=== PATIENT | female | born 1950 | race Hispanic/Latino ===

== ENCOUNTER 2016-08-21 09:25 | Outpatient (CLI) | payer MEDICARE ==
--- NOTE | 2016-08-21 12:40 | Magnetic Resonance Report ---
MRI BRAIN WITHOUT CONTRAST: 08/21/16 09:25:00 CLINICAL: Multiple sclerosis. COMPARISON: 02/20/12 TECHNIQUE: Axial diffusion, T1, T2, FLAIR, gradient echo T2*, and sagittal T1 sequences on a 1.5 Peggy magnet. FINDINGS: The ventricles and sulci are large for age and slightly larger compared to the prior exam. Grossly symmetric large bilateral temporo--parietal clefts technique a width of subarachnoid space but do not indicate within ventricles. These are not significantly changed compared to the prior exam. Extensive and slightly greater bilateral periventricular deep white matter and subcortical white matter and central nuñez matter hyperintensities on FLAIR and T2. 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 No restricted diffusion. No mass or mass effect. No hemorrhage, edema or extra-axial collection. Normal pituitary and optic chiasm. A left pontine focal hyperintensity on T2 is slightly more prominent than on the prior exam. Several small bilateral cerebellar white matter hyperintensities which are more prominent on the left side. Intact vascular flow voids. Normal sinuses. The orbits, and soft tissues are normal. Normal calvarium and skull base. IMPRESSION: Slightly greater global cortical atrophy and slightly more extensive bilateral white matter disease consistent with multiple sclerosis. No evidence of infarct or hemorrhage.
== END 2016-08-21 09:26 | disposition home or self-care (01) ==
LOC: SPVIMAG 09:25
DX: G35 Multiple sclerosis (principal); G31.9 Degenerative disease of nervous system, unspecified
CPT/HCPCS: 70551

== ENCOUNTER 2017-05-27 12:38 | Outpatient (CLI) | payer MEDICARE ==
--- NOTE | 2017-05-27 16:32 | Magnetic Resonance Report ---
MRI BRAIN WITHOUT CONTRAST: 05/27/17 12:38:00 CLINICAL: Multiple sclerosis. COMPARISON: 08/21/16 and 02/20/12 TECHNIQUE: Axial diffusion, T1, T2, FLAIR, gradient echo T2*, coronal T2 and sagittal T1 sequences on a 1.5 Peggy magnet. FINDINGS: Stable enlargement of ventricles and sulci which is greater than expected for age. No restricted diffusion. Stable grossly symmetric large bilateral temporo-parietal clefts which communicate with the subarachnoid space but do not communicate with the ventricles. Stable extensive bilateral periventricular deep and subcortical white matter hyperintensities on FLAIR and T2. No new hyperintensities. No mass or mass effect. No hemorrhage, edema or extra-axial collection. Normal pituitary and optic chiasm. Stable left pontine chronic lacunar infarct. Stable left periventricular occipital white matter chronic lacunar infarct. Normal sinuses. Intact vascular flow voids. The orbits, and soft tissues are normal. Normal calvarium and skull base. IMPRESSION: Stable disease. No new findings.
== END 2017-05-27 12:39 | disposition home or self-care (01) ==
LOC: SPVIMAG 12:38
DX: G35 Multiple sclerosis (principal)
CPT/HCPCS: 70551